=== PATIENT | female | born 1935 | race Hispanic/Latino ===

== ENCOUNTER 2017-06-06 13:06 | Emergency (ER) | payer MEDICARE ==
[~2017-06-06] VITALS: Ht 152.4 cm; Wt 72.6 kg
[~2017-06-06 13:06] MED LIST: INDERAL PO; VOLTAREN100 GM TOP
--- OUTSIDE RECORDS SUMMARY | 2017-06-06 13:09 | XMS REPORT ---
Author Author [facility] Address Unknown Phone Unavailable Care Team Providers Care Director Of Health Education Name Role Phone SIGRID CLAROS Unavailable Unavailable Problems This patient has no known problems. Allergies, Adverse Reactions, Alerts This patient has no known allergies or adverse reactions. Medications This patient has no known medications. Results Test Description Test Time Test Comments Text Results Atomic Results Result Comments CHEST 2 VIEWS [place] [address] Patient Name: BLANCA NORMAN MR #: [id number] : 1935 Age/Sex: 81/F Req # : [id number] Adm Physician: Ordered by: SIGRID CLAROS MD Report # : [id number] Location: ER Room/Bed: Procedure: [id number] DX/CHEST 2 VIEWS Exam Date: 11/17/16 Exam Time : 1929 REPORT STATUS: Signed EXAM: CHEST 2 VIEWS, PA and lateral DATE : 11/17/2016 7:24 PM Time stamp on exam: 1930 hours INDICATION: Cough COMPARISON: 01/19/2017 FINDINGS: LINES/TUBES: None LUNGS: No consolidations or edema. PLEURA: No effusions or pneumothorax. HEART AND MEDIASTINUM: Normal size and contour. BONES AND SOFT TISSUES: No acute findings. IMPRESSION: No acute thoracic abnormality. Signed by: Dr. Sisi Hendrix DO on 11/17/2016 9:12 PM Dictated By: SISI HENDRIX DO 11 Transcribed By: DENNIS on 11/17/162111 COPY TO: SIGRID CLAROS MD
--- NOTE | 2017-06-06 13:58 | Diagnostic Imaging Report ---
Two view chest x-ray INDICATION: Shortness of breath, flulike symptoms COMPARISON: Chest x-ray 11/17/2016. FINDINGS: The cardiomediastinal silhouette is normal. There is no evidence of hilar lymphadenopathy. The pulmonary vascular markings are normal. The diaphragms are flat. There is no evidence of focal consolidation or pleural effusion. Evaluation of the osseous structures demonstrates diffuse demineralization. No focal osseous lesions. IMPRESSION: Stable pulmonary hyperinflation. No acute cardiopulmonary process. Signed by: Dr. Fuad Lozano MD on 06/06/2017 1:55 PM
[2017-06-06] MEDS ORDERED: SODIUM CHLORIDE 0.9% 1000ML 1,000 ML IV SCH (14:15)
[2017-06-06] MEDS ORDERED: CEFTRIAXONE SOD 1 GM VIAL IV ONE (14:15)
[2017-06-06 14:25] LABS: BASOPHILS % 0.5 % (0.0-1.0); EOSINOPHILS # (AUTO) 0.2 (0.0-0.4); EOSINOPHILS % 3.6 % (0.0-6.0); HEMATOCRIT 40.9 % (34.2-44.1); HEMOGLOBIN 13.6 g/dL (12.0-16.0); LYMPHOCYTES # (AUTO) 1.3 (1.0-3.2); LYMPHOCYTES % 23.2 % (18.0-39.1); MEAN CORPUSCULAR HEMOGLOBIN 29.9 pg (28-32); MEAN CORPUSCULAR HGB CONC 33.3 g/dL (31-35); MEAN CORPUSCULAR VOLUME 89.9 fL (81-99); MONOCYTES # (AUTO) 0.5 (0.2-0.8); MONOCYTES % 9.6 % (4.4-11.3); NEUTROPHILS # (AUTO) 3.5 (2.1-6.9); NEUTROPHILS % 62.9 % (38.7-80.0); PLATELET COUNT 194 x10e3/uL (140-360); RED BLOOD COUNT 4.55 x10e6/uL (3.6-5.1)
[2017-06-06 14:45] LABS: ALANINE AMINOTRANSFERASE 17 IU/L (0-55); ALBUMIN 3.2 g/dL (3.5-5.0); ALBUMIN/GLOBULIN RATIO 0.8 (0.8-2.0); ALKALINE PHOSPHATASE 70 IU/L (40-150); ANION GAP 11.9 mmol/L (8-16); BLOOD UREA NITROGEN 12 mg/dL (7-26); BUN/CREATININE RATIO 17 (6-25); CALCIUM 9.8 mg/dL (8.4-10.2); CARBON DIOXIDE 26 mmol/L (22-29); CHLORIDE 105 mmol/L (98-107); CREATINE KINASE 120 IU/L (29-168); CREATININE, SERUM 0.69 mg/dL (0.57-1.11); EST GLOMERULAR FILTRATION RATE > 60 ML/MIN (60-); GLUCOSE 96 mg/dL (74-118); POTASSIUM 3.9 mmol/L (3.5-5.1); SODIUM 139 mmol/L (136-145)
[2017-06-06 15:46] VITALS: BP 173/93
== END 2017-06-06 16:37 | disposition home or self-care (01) ==
LOC: ER 13:06 → EDBEDREQ 13:30 → ER 16:37
DX: R06.00 Dyspnea, unspecified (principal); R05 Cough; J20.9 Acute bronchitis, unspecified; I10 Essential (primary) hypertension
CPT/HCPCS: 36415; 71046; 80053; 82550; 82553; 83880; 84484; 85025; 87400; 93005; 99284; J0696; J7030

== ENCOUNTER 2018-08-24 12:44 | Emergency (ER) | payer MEDICARE ==
[~2018-08-24] VITALS: Ht 152.4 cm; Wt 72.6 kg
--- NOTE | 2018-08-24 14:41 | Diagnostic Imaging Report ---
Exam: Right Knee Series. History: Knee pain Comparison: None Findings: 3 views of the right knee demonstrate no acute fracture or dislocation. Alignment is anatomic. Mild chondrocalcinosis. No substantial joint effusion. Impression: No acute osseous injury. Signed by: Ijeoma Fang MD on 08/24/2018 2:38 PM
== END 2018-08-24 17:38 | disposition home or self-care (01) ==
LOC: ER 12:44
DX: S83.421A Sprain of lateral collateral ligament of right knee, initial encounter (principal); M25.561 Pain in right knee; F41.9 Anxiety disorder, unspecified
CPT/HCPCS: 99282

== ENCOUNTER 2018-10-17 20:54 | Emergency (ER) | payer MEDICARE ==
[~2018-10-17] VITALS: Ht 152.4 cm; Wt 72.6 kg
--- NOTE | 2018-10-17 22:35 | Diagnostic Imaging Report ---
Elbow, Complete, left CPT code: 72103 History: Fall, pain Technique: Three views of the left elbow were performed. Findings: Osseous structures are well-developed and mineralized without fracture, dislocation, focal osseous lesion. No elbow effusion. No radiopaque foreign bodies in the soft tissues. IMPRESSION: No acute traumatic pathology. Signed by: Dr. Fuad Lozano MD on 10/17/2018 10:32 PM
--- NOTE | 2018-10-17 22:38 | Diagnostic Imaging Report ---
Exams: Head and cervical spine CTs without IV contrast History: Trauma, fall Comparison studies: None Technique: Axial images were obtained from the brain and cervical spine. Coronal and sagittal images reconstructed from the axial data. Dose modulation, iterative reconstruction, and/or weight based adjustment of the mA/kV was utilized to reduce the radiation dose to as low as reasonably achievable. Intravenous contrast: None Findings: Head CT: Scalp: Left parietal occipital scalp hematoma. No retained hyperdense foreign body. Bones: No fractures, blastic or lytic lesions. Extra-axial spaces: No masses. No fluid collections. Brain sulci: Mildly prominent. Ventricles: Mild compensatory dilatation. No hydrocephalus. Parenchyma: No abnormal densities. No masses, hemorrhage, acute or chronic vascular insults. Sellar/suprasellar region: No abnormalities. Craniocervical junction: The foramen magnum is patent. No Chiari one malformation. Cervical spine CT: Fractures: None. Soft tissues: No gross abnormalities. Atlantoaxial articulation: Intact. Alignment: Normal lordosis. Convex right cervical curvature is nonspecific. No subluxations. Cervicomedullary junction: No abnormalities. The foramen magnum is patent. Vertebrae: No infection. No destructive lytic or blastic lesions. Incidental all nonaggressive-appearing 4 mm sclerotic lesion in the C6 vertebral body may be a bone island. Degenerative changes: Mildly degenerated C4-C5 discs. Moderately degenerated C5-C6 disc. No significant canal stenosis. Multilevel facet arthrosis. Moderate foraminal stenosis on the left at C4-C5 and at C5-C6 due to uncovertebral and facet arthrosis. Incidental findings: Atherosclerotic calcifications in the left carotid bulb and in the carotid siphons. IMPRESSION: Head CT: 1. Left parietal-occipital scalp hematoma without underlying fracture. 2. No acute intracranial abnormalities. 3. Mild generalized parenchymal volume loss. Cervical spine CT: 1. No cervical spine fracture or subluxation 2. Cannot exclude ligament, spinal cord and or vascular abnormalities on the basis of this examination. Signed by: Dr. Henry Gama M.D. on 10/17/2018 10:34 PM
[2018-10-17 22:51] VITALS: BP 154/87
== END 2018-10-17 23:20 | disposition home or self-care (01) ==
LOC: ER 20:54
DX: S00.83XA Contusion of other part of head, initial encounter (principal); S50.02XA Contusion of left elbow, initial encounter; W01.0XXA Fall on same level from slipping, tripping and stumbling without subsequent striking against object, initial encounter; Y92.008 Other place in unspecified non-institutional (private) residence as the place of occurrence of the external cause
CPT/HCPCS: 70450; 72125; 99283

== ENCOUNTER 2019-03-18 16:11 | Emergency (ER) | payer MEDICARE ==
[~2019-03-18] VITALS: Ht 152.4 cm; Wt 72.6 kg
--- NOTE | 2019-03-18 17:12 | Diagnostic Imaging Report ---
Exam: Lumbar spine 2 views History: pain in leg Comparison: None. Findings: No fracture or malalignment. Mild degenerative endplate changes and facet arthrosis L4-5 and L5-S1. No abnormal soft tissue calcification or soft tissue defect. Impression: No acute osseous abnormality Mild spondylosis Signed by: Dr. Ravin Edwards M.D. on 03/18/2019 5:10 PM
[2019-03-18 19:55] VITALS: BP 163/71
== END 2019-03-18 19:50 | disposition home or self-care (01) ==
LOC: ER 16:11
DX: M79.652 Pain in left thigh (principal); M79.662 Pain in left lower leg; M47.897 Other spondylosis, lumbosacral region
CPT/HCPCS: 72100; 93971; 99283

== ENCOUNTER 2020-02-27 08:30 | Emergency (ER) | payer MEDICARE ==
[~2020-02-27] VITALS: Ht 152.4 cm; Wt 72.6 kg
[2020-02-27 10:25] VITALS: BP 111/59
== END 2020-02-27 10:25 | disposition home or self-care (01) ==
LOC: ER 09:02
DX: M79.652 Pain in left thigh (principal); S76.812A Strain of other specified muscles, fascia and tendons at thigh level, left thigh, initial encounter; I10 Essential (primary) hypertension; F41.9 Anxiety disorder, unspecified
CPT/HCPCS: 99283

== ENCOUNTER 2022-01-11 14:28 | Emergency (ER) | payer MEDICARE ==
[~2022-01-11] VITALS: Ht 152.4 cm; Wt 72.6 kg
[2022-01-11] MEDS ORDERED: IBUPROFEN 600 MG TAB PO ONE (15:02)
[2022-01-11] MEDS ORDERED: CYCLOBENZAPRINE HCL 10 MG TAB PO ONE (15:15)
[2022-01-11] MEDS ORDERED: IBUPROFEN 600 MG TAB ONE (15:19)
[2022-01-11] MEDS ORDERED: CYCLOBENZAPRINE HCL 10 MG TAB ONE (15:19)
[2022-01-11] MEDS ORDERED: AZITHROMYCIN250 MG PO (16:42)
== END 2022-01-11 17:04 | disposition home or self-care (01) ==
LOC: ER 14:51
DX: R05.9 Cough, unspecified (principal); J18.9 Pneumonia, unspecified organism; M54.2 Cervicalgia; I10 Essential (primary) hypertension; F41.9 Anxiety disorder, unspecified
CPT/HCPCS: 71046; 99283

== ENCOUNTER → 2022-03-27 | Outpatient (CLI) | payer MEDICARE ==
[~2022-03-27] MED LIST changes: +AZITHROMYCIN250 MG PO
== END ==
LOC: DX 15:09
PROVIDERS: ATTEND Family Medicine
DX: M85.88 Other specified disorders of bone density and structure, other site (principal)
CPT/HCPCS: 77080

== ENCOUNTER → 2022-04-14 | Outpatient (RCR) | payer MEDICARE | LOC: PT 04-03 13:49 | PROVIDERS: ATTEND Family Medicine | DX: M54.2 Cervicalgia (principal); M25.512 Pain in left shoulder; M25.511 Pain in right shoulder ==

== ENCOUNTER 2022-04-17 07:54 | Outpatient (RCR) | payer MEDICARE | END 2022-05-15 | LOC: PT 07:54 | PROVIDERS: ATTEND Family Medicine | DX: M54.2 Cervicalgia (principal); M25.512 Pain in left shoulder; M25.511 Pain in right shoulder ==

== ENCOUNTER → 2022-07-10 | Outpatient (CLI) | payer MEDICARE | LOC: CT 08:32 | PROVIDERS: ATTEND Family Medicine | DX: J18.9 Pneumonia, unspecified organism (principal) | CPT/HCPCS: 71250 ==

== ENCOUNTER 2024-01-09 17:08 | Emergency (ER) | payer MEDICARE ==
[~2024-01-09] VITALS: Ht 152.4 cm; Wt 72.6 kg
[2024-01-09 17:17] VITALS: TEMP 97.8
[2024-01-09 17:47] LABS: BASOPHILS % 0.8 % (0.0-1.0); EOSINOPHILS # (AUTO) 0.2 (0.0-0.4); EOSINOPHILS % 4.8 % (0.0-6.0); HEMOGLOBIN 14.2 g/dL (12.0-16.0); LYMPHOCYTES # (AUTO) 1.3 (1.0-3.2); LYMPHOCYTES % 32.2 % (18.0-39.1); MEAN CORPUSCULAR HEMOGLOBIN 30.5 pg (28-32); MEAN CORPUSCULAR HGB CONC 31.6 g/dL (31-35); MEAN CORPUSCULAR VOLUME 96.8 fL (81-99); MONOCYTES # (AUTO) 0.5 (0.2-0.8); MONOCYTES % 11.4 % (4.4-11.3); NEUTROPHILS % 50.5 % (38.7-80.0); PLATELET COUNT 173 x10e3/uL (140-360); RED BLOOD COUNT 4.65 x10e6/uL (3.6-5.1); RED CELL DISTRIBUTION WIDTH 13.6 % (11.7-14.4); WHITE BLOOD COUNT 3.94 x10e3/uL (4.8-10.8)
[2024-01-09 17:59] LABS: INR 0.88; PARTIAL THROMBOPLASTIN TIME 25.3 seconds (23.8-35.5); PROTHROMBIN TIME 12.5 seconds (11.9-14.5)
[2024-01-09 18:03] LABS: BILIRUBIN,URINE NEGATIVE (NEGATIVE); CLARITY,URINE CLEAR (CLEAR); COLOR,URINE YELLOW (YELLOW); GLUCOSE, URINE NEGATIVE (NEGATIVE); KETONES,URINE NEGATIVE (NEGATIVE); LEUKOCYTE ESTERASE ,URINE NEGATIVE (NEGATIVE); NITRITE,URINE NEGATIVE (NEGATIVE); PH,URINE 6 (5 - 7); PROTEIN,URINE DIPSTICK NEGATIVE (NEGATIVE); URINE UROBILINOGEN 0.2 mg/dL (0.2 - 1)
[2024-01-09 18:06] LABS: ALBUMIN 3.6 g/dL (3.5-5.0); ALBUMIN/GLOBULIN RATIO 0.9 (0.8-2.0); ANION GAP 15.1 mmol/L (8-16); BILIRUBIN,TOTAL 0.4 mg/dL (0.2-1.2); CALCIUM 9.8 mg/dL (8.4-10.2); CREATININE, SERUM 0.86 mg/dL (0.57-1.11); POTASSIUM 4.1 mmol/L (3.5-5.1); TOTAL PROTEIN 7.6 g/dL (6.5-8.1)
[2024-01-09 18:12] LABS: EPITHELIAL CELLS,URINE FEW /LPF; TROPONIN I 0.003 ng/mL (0-0.300)
[2024-01-09 20:31] VITALS: PULSE 77; RESP 16; O2SAT 100
== END 2024-01-09 20:45 | disposition home or self-care (01) ==
LOC: ER 17:16
DX: R42 Dizziness and giddiness (principal); G43.109 Migraine with aura, not intractable, without status migrainosus; R94.31 Abnormal electrocardiogram [ECG] [EKG]
CPT/HCPCS: 36415; 70450; 71045; 80053; 81001; 82550; 83735; 84484; 85025; 85610; 85730; 93005; 99284